=== PATIENT | female | born 1950 | race Hispanic/Latino ===

== ENCOUNTER → 2020-05-18 | Outpatient (CLI) | payer MEDICARE, OTHER ==
[~2020-05-18] MED LIST: ACET-2247 PO; MIRA25TA PO; MULT-950 PO
== END | disposition home or self-care (01) ==
LOC: RAH 13:15
PROVIDERS: ATTEND Family Medicine
DX: R10.813 Right lower quadrant abdominal tenderness (principal); R22.31 Localized swelling, mass and lump, right upper limb; R10.31 Right lower quadrant pain
CPT/HCPCS: 76882